=== PATIENT | male | born 1945 | race Caucasian/White ===

== ENCOUNTER → 2024-04-07 14:27 | Outpatient (REF) | payer MEDICARE, SELFPAY | LOC: PAVMRI 14:27 | PROVIDERS: ATTENDING PHYSICIAN Anesthesiology; FAMILY PHYSICIAN Family Medicine | DX: M54.12 Radiculopathy, cervical region (principal); M54.50 Low back pain, unspecified; G89.29 Other chronic pain; M51.24 Other intervertebral disc displacement, thoracic region; M54.6 Pain in thoracic spine | CPT/HCPCS: 72141; 72146; 72148 ==

== ENCOUNTER → 2024-06-14 07:20 | Outpatient (REF) | payer MEDICARE, SELFPAY | LOC: MRI 3T 07:20 | PROVIDERS: ATTENDING PHYSICIAN Orthopaedic Surgery Hand Surgery; FAMILY PHYSICIAN Family Medicine | DX: M25.512 Pain in left shoulder (principal) | CPT/HCPCS: 73221 ==

== ENCOUNTER → 2024-06-23 10:41 | Outpatient (REF) | payer MEDICARE, SELFPAY | LOC: RCS 10:41 | PROVIDERS: ATTENDING PHYSICIAN Orthopaedic Surgery Hand Surgery; FAMILY PHYSICIAN Family Medicine | DX: Z01.818 Encounter for other preprocedural examination (principal) | CPT/HCPCS: 93005 ==

== ENCOUNTER → 2025-01-04 13:37 | Outpatient (REF) | payer MEDICARE, SELFPAY ==
[2025-01-04 14:37] LABS: Hematocrit 46.9 % (39.0-52.0); Hemoglobin 16.3 g/dL (13.0-18.0); Mean Corp Hgb Conc. 34.8 g/dL (33.0-37.0); Mean Corpuscular Hgb 35.2 pg (27.0-31.0); Mean Corpuscular Volume 101.3 fL (80.0-94.0); Mean Platelet Volume 10.6 fL (7.4-10.4); Platelet Count 236 10^3/uL (130-400); Red Blood Cell Count 4.63 10^6/uL (4.70-6.10); Red Cell Dist. Width 13.2 % (11.5-14.5); White Blood Cell Count 8.2 10^3/uL (4.8-10.8)
[2025-01-04 14:52] LABS: ALT (SGPT) 40 U/L (0-50); AST (SGOT) 36 U/L (17-59); Albumin 4.3 g/dl (3.5-5.0); Alkaline Phosphatase 111 U/L (38-126); Blood Urea Nitrogen 11 mg/dl (9-20); Calcium 9.9 mg/dl (8.4-10.2); Carbon Dioxide 27 mmol/L (22-30); Chloride 104 mmol/L (98-107); Glucose 95 mg/dl (70-99); Potassium 3.8 mmol/L (3.5-5.1); Sodium 140 mmol/L (135-145); Total Bilirubin 1.1 mg/dl (0.2-1.3); Total Protein 6.6 g/dl (6.3-8.2); eGFR > 60.00
== END ==
LOC: SDSPAT 13:37
PROVIDERS: ATTENDING PHYSICIAN Orthopaedic Surgery Orthopaedic Surgery of the Spine; FAMILY PHYSICIAN Family Medicine
DX: Z01.818 Encounter for other preprocedural examination (principal)
CPT/HCPCS: 80053; 85027; 86850; 86900; 86901; 87070; 93005

== ENCOUNTER 2025-01-12 06:20 | Day surgery (SDC) | payer MEDICARE, SELFPAY ==
[2025-01-04 14:20] VITALS: BMI 32.2
[2025-01-06 09:08] VITALS: BMI 32.2
[2025-01-12] VITALS (27 sets, daily range): BP systolic 114–156; BP diastolic 68–116; BMI 32.2
[2025-01-12] MEDS: CELEBREX 200 MG PO (08:41)
[2025-01-12] MEDS: LYRICA 150 MG PO (08:41)
[2025-01-12] MEDS: NORMOSOL-R/PLASMALYTE-A 1000 IV ×2 (08:42→16:19)
[2025-01-12] MEDS: METHOCARBAMOL 1500 MG PO (08:42)
[2025-01-12] MEDS: TYLENOL 1000 MG PO ×3 (08:42→20:00)
--- NOTE | 2025-01-12 12:19 | W.PN.UPDATE ---
Update Note
Progress Note Update
Cervical arthritis w/ myelopathy s/p C3-C4, C4-C5 ACDF w/ Dr Baez 01/12/25
DVT prophylaxis - b/l SCDs/TEDS
HTN - + parameters - monitor BP
Abnormal EKG - monitor on tele
Daily alcohol � 1 drink/day reported
- Add thiamine, folic acid
- Consider Gabapentin, Serax HS
- Monitor for potential s/sx of withdrawal
OA s/p L TKA, R ELIAS
Multilevel DDD w/ stenosis
Gout
Prediabetes
[2025-01-12] MEDS: ULTRAM 50 MG PO ×3 (16:17→20:00)
[2025-01-12] MEDS: ANCEF 5 IV (16:17)
[2025-01-12] MEDS: TOPROL XL 25 MG PO (19:59)
[2025-01-12] MEDS: COLACE 100 MG PO (19:59)
[2025-01-12] MEDS: LYRICA 75 MG PO (19:59)
[2025-01-12] MEDS: TOPROL XL 50 MG PO (19:59)
[2025-01-12] MEDS: SENOKOT 17.2 MG PO (19:59)
--- NOTE | 2025-01-12 22:07 | PTCARENOTE ---
Patient had tramadol 100mg instead of 50mg. vitals are stable. AAox3. 133/97, HR- 89, RR- 16, oxygen sat- 95% RA. Just now ambulated to and from the bathroom . Kj Stewart made aware. No new orders at this time.
[2025-01-13] MEDS: ANCEF 5 IV (00:13)
[2025-01-13] MEDS: NORMOSOL-R/PLASMALYTE-A 1000 IV (00:13)
[2025-01-13] MEDS: ULTRAM 50 MG PO ×2 (02:55→07:28)
[2025-01-13] MEDS: TYLENOL 1000 MG PO ×2 (02:55→09:26)
[2025-01-13 03:27] VITALS: BP 133/66
[2025-01-13 07:12] VITALS: BP 133/71
[2025-01-13] MEDS: LYRICA 75 MG PO (07:27)
[2025-01-13] MEDS: SENOKOT 17.2 MG PO (07:28)
[2025-01-13] MEDS: FOLVITE 0.5 MG PO (07:28)
[2025-01-13] MEDS: COLACE 100 MG PO (07:28)
[2025-01-13] MEDS: TOPROL XL 50 MG PO (07:29)
[2025-01-13] MEDS: VITAMIN B1 100 MG PO (07:29)
[2025-01-13] MEDS: ZYLOPRIM 300 MG PO (07:29)
[2025-01-13] MEDS: TOPROL XL 25 MG PO (07:30)
[2025-01-13 07:41] LABS: Hematocrit 41.9 % (39.0-52.0); Hemoglobin 14.5 g/dL (13.0-18.0)
--- NOTE | 2025-01-13 08:00 | W.DS.TRANS ---
DC Summary - Physician Coder
-
Discharge Instructions:
Sleep Apnea Risk Intermediate
Discharge Diagnosis/Procedures Cervical arthritis w/ myelopathy s/p C3-C4, C4-
C5 ACDF w/ Dr Baez 01/12/25
Diet Regular
Activity As tolerated
Additional Activity No heavy lifting >10 lbs
Driving Restrictions Not until seen by your Dr
Bathing Restrictions OK to shower in 4 days
Instructions:
Stand-Alone Forms: Baez Cervical D/C Inst.
Changes to Home Medications: No
Discharge Medications:
DC Medications w/original date entered in [employer]
allopurinol 300 mg tablet 300 mg PO DAILY 01/06/25
hydrochlorothiazide 25 mg tablet 25 mg PO DAILY 01/06/25
metoprolol succinate 50 mg tablet,extended release 24 hr 75 mg PO BID 01/06/25
oxycodone 5 mg tablet 5 - 10 mg (1 - 2 x 5 mg) PO Q6H PRN moderate-severe pain #30 tabs 01/12/25
pregabalin 75 mg capsule 75 mg PO Q12H neuropathic pain #15 caps 01/12/25
Home Medication Changes
Pending Results: No
--- NOTE | 2025-01-13 08:01 | W.PN.SP ---
Today's Communication / Plan
-
s/p acdf
Doing well
Pt
D/c
Subjective / Objective
Subjective Data
Pt doing well
Denies weakness
Feels good
Objective Data
Vital Signs
Temp Pulse Resp BP Pulse Ox
97.7 F 68 17 133/71 94
01/13/25 07:12 01/13/25 07:30 01/13/25 07:12 01/13/25 07:30 01/13/25 07:12
Intake and Output
01/12/25 01/13/25 01/14/25
06:59 06:59 06:59
Intake Total 360 / 360 2160 / 2160
Balance 360 / 360 2160 / 2160
Intake:
Oral fluids 360 / 360 960 / 960
IV fluids (Total) 1200 / 1200
Other:
How many times incontinent 3
MODERATE amount urine
Lab Data
01/13/25 06:39
[2025-01-13 08:13] LABS: Blood Urea Nitrogen 17 mg/dl (9-20); Calcium 9.2 mg/dl (8.4-10.2); Carbon Dioxide 27 mmol/L (22-30); Chloride 105 mmol/L (98-107); Estimated Creatinine Clearance 79 ml/min; Glucose 128 mg/dl (70-99); Potassium 4.1 mmol/L (3.5-5.1); Sodium 141 mmol/L (135-145); eGFR > 60.00
--- NOTE | 2025-01-13 08:55 | W.PN.ORTHO ---
Today's Communication / Plan
-
Await PT and OT recs.
D/c later today if remaining clinically stable.
Assessment
.
Distal Motor Intact: Yes
Dressing:
Clean, dry and intact.
Assessment:
Cervical arthritis w/ myelopathy s/p C3-C4, C4-C5 ACDF w/ Baez 01/12/25
DVT prophylaxis - b/l SCDs/TEDS
Mild congestion POD 1 - nasal saline, Mucinex prn
- No concerning signs on physical exam today
HTN - + parameters - BPs overall stable
Abnormal EKG - maintaining NSR on tele
Daily alcohol � 1 drink/day reported
- Added thiamine, folic acid
- Consider Gabapentin, Serax HS
- No s/sx of withdrawal during admission
OA s/p L TKA, R ELIAS
Multilevel DDD w/ stenosis
Gout
Prediabetes
Plan
.
Surgery / Date: C3-C4, C4-C5 ACDF w/ Dr [facility] 01/12/25
DVT Prophylaxis: Other (b/l SCDs/TEDS)
Activity:
Out of bed.
PT/OT
Discharge Plan: Home
Subjective
.
.:
Patient resting comfortably in his chair.
Denies significant neck pain overnight.
Mild congestion this AM - nasal saline, Mucinex ordered. Lungs CTA.
AM labs stable.
Eager for potential d/c later today.
Vital Signs and Labs
.
Vital Signs and Labs:
Lab Results
01/13/25 06:39
01/13/25 06:39
Temp Pulse Resp BP Pulse Ox
97.7 F 68 17 133/71 94
01/13/25 07:12 01/13/25 07:30 01/13/25 07:12 01/13/25 07:30 01/13/25 07:12
Physical Exam
-
HEENT: No pallor, cyanosis, or jaundice. Throat clear.
NECK: + Cervical collar. Neck supple.
RESPIRATORY: Lungs clear to auscultation.
CVS: S1, S2 normal. RRR.�
ABDOMEN: Soft, non-tender. No distension. Obese.
EXTREMITIES: Strength equal, no calf pain with palpation/dorsiflexion. Calves soft.
PLANT TECHNICIAN/CONTROL ROOM OPERATOR: AOx3. No focal deficits. cap coverer grossly intact
--- NOTE | 2025-01-13 09:05 | W.DS.TRANS ---
DC Summary - Training Development Specialist
-
Discharge Instructions:
Sleep Apnea Risk Intermediate
Discharge Diagnosis/Procedures Cervical arthritis w/ myelopathy s/p C3-C4, C4-
C5 ACDF w/ Dr Baez 01/12/25
Diet Regular
Activity As tolerated,With Walker
Additional Activity No heavy lifting >10 lbs
Driving Restrictions Not until seen by your Dr
Bathing Restrictions OK to shower in 4 days
Instructions:
Stand-Alone Forms: Baez Cervical D/C Inst.
Changes to Home Medications: Yes
Discharge Medications:
DC Medications w/original date entered in [facility]
allopurinol 300 mg tablet 300 mg PO DAILY 01/06/25
metoprolol succinate 50 mg tablet,extended release 24 hr 75 mg PO BID 01/06/25
Saccharomyces boulardii 250 mg capsule (Florastor) 250 mg PO BID #10 caps 01/12/25
acetaminophen 500 mg tablet (Tylenol Extra Strength) 1,000 mg (2 x 500 mg) PO Q6H #60 tabs 01/12/25
cephalexin 500 mg capsule 500 mg PO Q6H #20 caps 01/12/25
docusate sodium 100 mg capsule 100 mg PO BID #30 caps 01/12/25
hydrochlorothiazide 25 mg tablet 25 mg PO DAILY #1 tab 01/12/25
ondansetron HCl 4 mg tablet 4 mg PO Q6H PRN nausea and vomiting #30 tabs 01/12/25
oxycodone 5 mg tablet 5 - 10 mg (1 - 2 x 5 mg) PO Q6H PRN moderate-severe pain #30 tabs 01/12/25
pregabalin 75 mg capsule 75 mg PO Q12H neuropathic pain #15 caps 01/12/25
sennosides 8.6 mg tablet (Paola-malachi) 17.2 mg (2 x 8.6 mg) PO BID #30 tabs 01/12/25
guaifenesin 600 mg tablet, extended release 12 hr 600 mg PO Q12 PRN chest congestion #30 tabs 01/13/25
sodium chloride 0.65 % nasal spray aerosol (Saline Nasal) 2 spray intranasal QIDPRN PRN nasal congestion #44 mL 01/13/25
Home Medication Changes
Saccharomyces boulardii 250 mg capsule (Florastor) 250 mg PO BID #10 caps 01/12/25
acetaminophen 500 mg tablet (Tylenol Extra Strength) 1,000 mg (2 x 500 mg) PO Q6H #60 tabs 01/12/25
cephalexin 500 mg capsule 500 mg PO Q6H #20 caps 01/12/25
docusate sodium 100 mg capsule 100 mg PO BID #30 caps 01/12/25
ondansetron HCl 4 mg tablet 4 mg PO Q6H PRN nausea and vomiting #30 tabs 01/12/25
oxycodone 5 mg tablet 5 - 10 mg (1 - 2 x 5 mg) PO Q6H PRN moderate-severe pain #30 tabs 01/12/25
pregabalin 75 mg capsule 75 mg PO Q12H neuropathic pain #15 caps 01/12/25
sennosides 8.6 mg tablet (Paola-amlachi) 17.2 mg (2 x 8.6 mg) PO BID #30 tabs 01/12/25
guaifenesin 600 mg tablet, extended release 12 hr 600 mg PO Q12 PRN chest congestion #30 tabs 01/13/25
sodium chloride 0.65 % nasal spray aerosol (Saline Nasal) 2 spray intranasal QIDPRN PRN nasal congestion #44 mL 01/13/25
Pending Results: Yes (Hep C antibody)
[2025-01-13] MEDS: OCEAN, SALINE MIST 2 SPRAYS NASAL (09:26)
[2025-01-13] MEDS: MUCINEX 600 MG PO (09:26)
[2025-01-13] MEDS: NORMOSOL-R/PLASMALYTE-A IV (09:27)
[2025-01-13 09:28] VITALS: BP 122/64; PULSE 72; O2SAT 94
[2025-01-13 11:16] VITALS: BP 150/72
[2025-01-13 11:21] VITALS: BP 140/74; PULSE 61; O2SAT 97
[2025-01-13 18:46] LABS: Hepatitis C Antibody Negative (Negative)
== END 2025-01-13 12:30 | disposition home or self-care (01) ==
LOC: SDS 06:20
PROVIDERS: Physician Assistant; ATTENDING PHYSICIAN Orthopaedic Surgery Orthopaedic Surgery of the Spine; FAMILY PHYSICIAN Family Medicine
PROC: 0RG20A0 Fusion of 2 or more Cervical Vertebral Joints with Interbody Fusion Device, Anterior Approach, Anterior Column, Open Approach (ICD-10-PCS; 2025-01-12)
DX: M47.12 Other spondylosis with myelopathy, cervical region (principal); M48.02 Spinal stenosis, cervical region
CPT/HCPCS: 22551; 22552; 22853 ×2; 72020; 80048; 85014; 85018; 86803; 86900; 86901; 97116; 97162; 97167; 97530; 97535; C1713

== ENCOUNTER 2025-01-16 06:10 | Inpatient (IN) | payer MEDICARE, SELFPAY ==
[2025-01-15 23:19] VITALS: BP 174/80
[2025-01-15 23:25] VITALS: BP 174/80
[2025-01-15 23:27] VITALS: BMI 30.5
[2025-01-15 23:47] LABS: COVID-19 Antigen Negative (Negative)
[2025-01-16] VITALS (13 sets, daily range): BP systolic 134–173; BP diastolic 73–96; BMI 29.7
[2025-01-16 00:05] LABS: % Basophils 0.5 % (0-2); % Eosinophils 1.2 % (0-6); % Immature Granulocytes 0.7 % (0-0.5); % Lymphocytes 8.9 % (20.5-51.1); % Monocytes 7.8 % (1.7-9.3); % Neutrophils 80.9 % (42.2-75.2); Absolute Basophils 0.1 10^3/uL (0-0.2); Absolute Eosinophils 0.1 10^3/uL (0-0.7); Absolute Immature Granulocytes 0.1 10^3/uL (0-0.05); Absolute Monocytes 0.8 10^3/uL (0.1-0.6); Absolute Neutrophils 8.7 10^3/uL (1.4-6.5); Hematocrit 46.2 % (39.0-52.0); Hemoglobin 16.3 g/dL (13.0-18.0); Mean Corp Hgb Conc. 35.3 g/dL (33.0-37.0); Mean Corpuscular Hgb 36.1 pg (27.0-31.0); Mean Corpuscular Volume 102.4 fL (80.0-94.0); Mean Platelet Volume 10.7 fL (7.4-10.4); Nucleated Red Blood Cells % 0 % (-); Platelet Count 208 10^3/uL (130-400); Red Blood Cell Count 4.51 10^6/uL (4.70-6.10); Red Cell Dist. Width 13.1 % (11.5-14.5); White Blood Cell Count 10.7 10^3/uL (4.8-10.8)
[2025-01-16 00:13] LABS: ALT (SGPT) 31 U/L (0-50); AST (SGOT) 31 U/L (17-59); Albumin 4.5 g/dl (3.5-5.0); Alkaline Phosphatase 95 U/L (38-126); Blood Urea Nitrogen 17 mg/dl (9-20); Carbon Dioxide 26 mmol/L (22-30); Chloride 103 mmol/L (98-107); Estimated Creatinine Clearance 94 ml/min; Glucose 121 mg/dl (70-99); Potassium 4.2 mmol/L (3.5-5.1); Sodium 141 mmol/L (135-145); Total Bilirubin 1.8 mg/dl (0.2-1.3); Total Protein 6.7 g/dl (6.3-8.2); eGFR > 60.00
--- NOTE | 2025-01-16 01:10 | ED.GENMED ---
History of Present Illness
General
Chief Complaint: Breathing Problem
Source: patient
Exam Limitations: none
Time Seen by Provider: 01/16/25 00:31
Nursing documentation reviewed up to this point in time: agreed with
History of Present Illness
History of Present Illness:
79-year-old male presents to the emergency department 3 days status post discharge from neck surgery by Dr. Baez. Patient has been unable to take his medications regularly. He states that he is short of breath and unable to swallow his pills. He
was able to eat some breakfast today. Patient feels a gurgling in his throat and his stomach. Denies fever chills, nausea or vomiting.
Past History
Past History
ED Past Medical History: HTN
ED Past Surgical History: Orthopedic
Social History
Tobacco: Non-smoker
Alcohol: None
Review of Systems
Review of Systems
Allergies reviewed?: Yes
Other source history: family
All Other Systems: ROS reviewed and negative except as documented in HPI and ROS
Constitutional: Reports no symptoms
EENT: Reports other (Difficulty swallowing)
Respiratory: Reports no symptoms
Cardiac: Reports no symptoms
ABD/GI: Reports no symptoms
: Reports no symptoms
Musculoskeletal: Reports no symptoms
Skin: Reports no symptoms
Neurological: Reports no symptoms
Endocrine: Reports no symptoms
Hematologic/Lymphatic: Reports no symptoms
Psychiatric: Reports no symptoms
Phy Exam
General Physical Exam
General Presentation: well appearing and no apparent distress
General Skin: warm and dry
General Habitus: normal
General Mental: alert
General Hydration: appears well hydrated
ENT Exam
ENT Exam: EOMI, pharynx normal, neck supple, normocephalic and other (Soft collar in place)
Eye Exam
Eye Exam: PERRL, cornea clear and conjunctiva normal
Cardiovascular Exam
Cardiovascular Exam: regular rate/rhythm, no edema, no murmur and normal peripheral pulses
Pulmonary Exam
Pulmonary Exam: lungs clear, no respiratory distress, no rales, no crackles, no rhonchi, no stridor, no wheezing and no cough
Gastrointestinal Exam
Gastrointestinal Exam: normal bowel sounds, non tender, soft, no organomegaly, no pulsatile mass and non distended
Neurological Exam
Neurological Exam: alert, oriented x3, no motor deficits and speech normal
Musculoskeletal Exam
Musculoskeletal Exam: full ROM and no edema
Skin Exam
Skin Exam: normal color, warm/dry, no rash and no petechia
Psychiatric Exam
Psychiatric Exam: normal mood/affect
Scores
Heart Failure Risk
Heart Failure Risk Score: Not Applicable
Course
Orders/Labs/Results
Orders:
Orders
01/15/25 23:24
COVID-19 Antigen Urgent
Source: Nasal Swab
INF RAPID [Influenza A+B Rapid Molecular] Urgent
DAPHNE Source: Nasal Swab
Specimen Description:
01/15/25 23:49
Complete Blood Count/With Diff Urgent
Comprehensive Metabolic Panel Urgent
01/16/25 00:00
CR Chest - 2 Views Urgent
Reason For Exam: cough and SOB
01/16/25 00:53
NT-proBNP Urgent
Troponin I Urgent
01/16/25 03:16
CT Neck W/o Iv Contrast Urgent
Comment:
Reason For Exam: diff swallowing
01/16/25 04:44
Dexamethasone Sod Phosphate [Decadron] 10 mg IV NOW STA
01/16/25 05:24
Admit/Transfer Patient As Directed
Co-Sign Provider:
Level of Care: Inpatient admission
Assign to:: Telemetry
Physician / Group: hospitalist
Diagnosis: dysphagia
Reason for Telemetry: Other
Other Reason for Telemetry: stridor
Date to Stop Telemetry: 01/18/25
Time to Stop Telemetry: 11:00
Reason for Hospitalization: dysphagia
Expected length of stay greater than two midnights?: Yes
ELOS- Estimated Length of Stay in days: 2
I certify the patient meets the requirements for IP care: Yes
PRN Pain Medication Management As Directed
May give lesser potent ordered pain med per pt: Yes
preference::
Protocol:: Medication orders for pain may be administered in a
manner that supports deferring to patient preference
when the pt is:
- Requesting an ordered lesser potent pain medication.
Least to most potent pain medications are defined
as: acetaminophen < NSAID < tramadol < opioids
(morphine, oxycodone, hydromorphone).
- Requesting a lesser dose of the same medication IF
ORDERED.
- Requesting a less intrusive route of administration
if both routes are prescribed by the provider (PO <
IV).
01/16/25 05:25
Code Status As Directed
Resuscitation Status: Full Code
01/16/25 Breakfast
NPO
Allow oral meds: No
Allow clear liquids: No
Flush (0.9% Sodium Chloride) [Flush (Nss)] See Dose Instructions IV PER PROTOCOL
01/16/25 08:00
CeFAZolin 2 GRAM [Ancef] 2 grams in 10 ml IV Q8H
01/16/25 08:17
Acetaminophen [Tylenol/Feverall] 650 mg RECTAL Q4HPRN PRN
Dextrose 5%/0.45%Sodchl 1000ML [D5/0.45%NaCl] 1,000 ml IV 60 mls/hr
HYDROmorphone [Dilaudid] 0.5 mg IV Q4HPRN PRN
HydrALAZINE [Apresoline] 10 mg IV Q6HPRN PRN
Ketorolac [Toradol] 10 mg IV Q6HPRN PRN
Metoprolol [Lopressor] 5 mg IV Q6
Ondansetron Injectable [Zofran] 4 mg IV Q6HPRN PRN
01/16/25 08:17
ENT CONSULT Routine
Consulting Provider: Katie Davidson
Was physician already notified: Yes
Reason for Consult: post op stridor
SURGICAL CONSULT Routine
Consulting Provider: Jt Baez
Was physician already notified: Yes
Activity As Directed
Activity Level: With Assistance
Vital Signs As Directed
Frequency: q4h
Speech Therapy Eval & Treat Routine
DX Deep Vein Thrombosis Video Routine
01/16/25 08:40
Sodium Chloride [[place], Saline Mist] See Dose Instructions NASAL QIDPRN PRN
01/16/25 12:00
Dexamethasone Sod Phosphate [Decadron] 4 mg IV Q6H
01/16/25 18:00
Enoxaparin Sodium [Lovenox] 40 mg SC QPM
01/17/25 06:00
Basic Metabolic Panel IN AM
Complete Blood Count/No Diff IN AM
01/18/25 11:00
DC Protocol for Telemetry ONCE
Abnormal Lab Results
01/15/25
23:49
RBC 4.51 L 10^6/uL
(4.70-6.10)
MCV 102.4 H fL
(80.0-94.0)
MCH 36.1 H pg
(27.0-31.0)
MPV 10.7 H fL
(7.4-10.4)
Abs Immat Gran (auto) 0.1 H 10^3/uL
(0-0.05)
Absolute Neuts (auto) 8.7 H 10^3/uL
(1.4-6.5)
Absolute Lymphs (auto) 1.0 L 10^3/uL
(1.2-3.4)
Absolute Monos (auto) 0.8 H 10^3/uL
(0.1-0.6)
Immature Gran % 0.7 H %
(0-0.5)
Neutrophils % 80.9 H %
(42.2-75.2)
Lymphocytes % 8.9 L %
(20.5-51.1)
Glucose 121 H mg/dl
(70-99)
Total Bilirubin 1.8 H mg/dl
(0.2-1.3)
01/15/25 23:49
01/15/25 23:49
Vital Signs
Initial and Last Documented VS:
Initial Vital Signs
Pulse Ox
96
01/15/25 23:17
Last Documented Vital Signs
Temp Pulse Resp BP Pulse Ox
97.8 F 70 18 155/81 96
01/16/25 19:34 01/16/25 19:34 01/16/25 19:34 01/16/25 19:34 01/16/25 19:34
*Critical Care Note
Total Time (30-74mins, 75-104mins- exclusive of procedures): Not Applicable
Update Note
Update Note:
Exams: CR Chest - 2 Views
CPT: 14836
PROCEDURE: CR Chest - 2 Views
CLINICAL INDICATION: cough and SOB
TECHNIQUE: 2 views of chest performed.
COMPARISON: No comparison available.
FINDINGS: The lungs appear clear.
The cardiac silhouette, vascular markings, and mediastinal shadow appear normal.
IMPRESSION:
No evidence of active cardiopulmonary disease.
Electronically signed by Get Mena MD, 01/16/2025 12:[address] neck without IV contrast
IMPRESSION:
Limited assessment without IV contrast.
Status post C3-5 ACDF with prevertebral edema versus blood products, and subcutaneous emphysema, cannot exclude infection. No prior imaging for comparison. Spine surgery consultation recommended.
Minimal paranasal sinus disease. Mastoid air cells clear. Lung apices clear.
Spoke with Dr. Baez, spine surgery who recommended Decadron and admission to hospitalist service. Hospitalist aware and agrees to accept patient on his service.
ED Attending Note
-
Portions of this chart may have been created with voice recognition software.� Occasional wrong word or��sound alike� substitutions may have occurred due to the inherent limitations of voice recognition software.
Discharge Plan
Departure
Patient Disposition: Admit
Date of Disposition: 01/16/25
Time of Disposition: 04:45
Admit to: Telemetry
Presentation/result/management discussed w/ accepting MD/DO: Hospitalist
Condition: Good
Discharge Problem:
Postsurgical swelling
Interventions
Interventions:
*Risk Screen - Suicide Last Done: 01/15/25 23:13
*General Assessment Last Done: 01/15/25 23:27
*Neglect/Abuse Screening Last Done: 01/15/25 23:13
*ED- Fall Risk Assessment Last Done: 01/15/25 23:27
*ED COVID-19 Vaccine History Last Done: 01/15/25 23:13
*Nursing Disposition Last Done: 01/16/25 08:07
ED- Cardiac Assessment Last Done: 01/15/25 23:27
ED- Pulmonary Assessment Last Done: 01/15/25 23:27
Discharge Date and Time
Discharge Date/Time: 01/16/25 08:08
[2025-01-16 01:29] LABS: NT-proBNP 490 pg/ml; Troponin I < 0.012 ng/ml
[2025-01-16] MEDS: DECADRON 10 MG IV (04:49)
--- NOTE | 2025-01-16 04:55 | HPS.HSE ---
Family Physician
-
Family Physician: Nikolas Valencia
Chief Complaint
-
Trouble breathing and swallowing
History of Present Illness
This is a 79-year-old with past medical history of hypertension, hyperlipidemia, gout and prediabetes who is postop day #3 status post ACDF on 317 who presents to the emergency department with difficulty swallowing and intolerance of p.o.
Patient reports that symptoms began immediately after surgery and upon discharge. His had difficulty swallowing liquids tablets and solid foods since then. Reports hearing a gurgling sound when he takes a deep breath. He initially thought that
this was coming from his stomach and was concerned about abdominal issues. He reports some difficulty breathing and states that he does feel short of breath. He states that he feels occasional difficulty to breathe. He denies any wheezing. He
denies any cough. He has no known history of CHF. He denies edema in the lower extremities. He denies PND. Patient denies any pain in his neck. He denies any pain with attempted swallowing. He reports that if he tries to take a liquid or
tablet upon reaching the back of his throat it just comes out spontaneously. Denies vomiting. He denies regurgitation. He has been unable to take his prescribed medications since discharge.
In the emergency department he was afebrile, blood pressure was 170/90 with a pulse rate of 77 and oxygen saturation of 96% on room air. CBC was unremarkable. Electrolyte BUN/creatinine were all normal. Glucose was normal. BNP was 490.
Imaging studies with a CT scan shows status post C3-5 ACDF with prevertebral edema versus blood products and subcutaneous emphysema. Lung apices were clear. Chest x-ray shows no evidence of acute infiltration, ptx, edema.
Medical History
Past Medical History
Past Medical History: Reports HTN and Other (Gout, arthritis,)
Past Surgical History: Reports Orthopedic (Left total knee replacement, right total hip arthroplasty ) and Tonsilectomy
Additional Past Surgical History:
L5-S1 ILESI NO SED 03/13/23
L5-SI ILESI NO SED 04/03/23
RT L1-2 ILESI NO SED 05/01/23
left shoulder surgery form a fall 2023
C3-5 ACDF 01/13/2025
Social History
Tobacco: Non-smoker
Alcohol: None
Drug: None
Personal:
Living: With Family
Employment: Retired
Family History
Family History: Not pertinent
Allergies / Home Medications
Allergies reflects when Allergies were last updated in [employer].
Home Medications with original date entered in [employer]
Allergy/Medication List:
Allergies
Allergy/AdvReac Type Severity Reaction Status Date / Time
No Known Allergies Allergy Verified 01/12/25 08:24
Home Medications
allopurinol 300 mg tablet 300 mg PO DAILY 01/06/25
metoprolol succinate 50 mg tablet,extended release 24 hr 75 mg PO BID 01/06/25
Saccharomyces boulardii 250 mg capsule (Florastor) 250 mg PO BID #10 caps 01/12/25
acetaminophen 500 mg tablet (Tylenol Extra Strength) 1,000 mg (2 x 500 mg) PO Q6H #60 tabs 01/12/25
cephalexin 500 mg capsule 500 mg PO Q6H #20 caps 01/12/25
docusate sodium 100 mg capsule 100 mg PO BID #30 caps 01/12/25
hydrochlorothiazide 25 mg tablet 25 mg PO DAILY #1 tab 01/12/25
ondansetron HCl 4 mg tablet 4 mg PO Q6H PRN nausea and vomiting #30 tabs 01/12/25
oxycodone 5 mg tablet 5 - 10 mg (1 - 2 x 5 mg) PO Q6H PRN moderate-severe pain #30 tabs 01/12/25
pregabalin 75 mg capsule 75 mg PO Q12H neuropathic pain #15 caps 01/12/25
sennosides 8.6 mg tablet (Paola-malachi) 17.2 mg (2 x 8.6 mg) PO BID #30 tabs 01/12/25
guaifenesin 600 mg tablet, extended release 12 hr 600 mg PO Q12 PRN chest congestion #30 tabs 01/13/25
sodium chloride 0.65 % nasal spray aerosol (Saline Nasal) 2 spray intranasal QIDPRN PRN nasal congestion #44 mL 01/13/25
Review of Systems
-
History Source: Patient
Constitutional: Reports No Symptoms
Respiratory: Reports Trouble Breathing
Cardiac: Reports No Symptoms
Abdomen/GI: Reports No Symptoms
: Reports No Symptoms
Musculoskeletal: Reports No Symptoms
Skin: Reports No Symptoms
Neurological: Reports No Symptoms
Endocrine: Reports No Symptoms
Hematologic/Lymphatic: Reports No Symptoms
Psych: Reports No Symptoms
Physical Exam
Vital Signs
Vital Signs
Temp Pulse Resp BP Pulse Ox
98.2 F 74 13 153/96 96
01/15/25 23:25 01/16/25 04:45 01/16/25 04:45 01/16/25 04:21 01/16/25 04:45
Physical Exam
General: Well Developed, Well Nourished, Comfortable and Conversant
HEENT: NormoCephalic, Anicteric, Moist mucous membranes, Atraumatic, Good Dentition, PERRLA, No Ptosis, Nose Appears Normal, Pharyngeal Erythema, Neck Nontender and Other (hoarseness); No Oxygen
Respiratory: Clear, Non Labored Respirations, Clear to Percussion and Other (end expiratory stridor); No Accessory Resp Muscle Use or Decreased Breath Sounds
Cardiac: S1/S2 and Regular Rhythm
Breast: Deferred by me
GI: Soft, Normal Bowel Sounds, Distended and No Hepatosplenomegaly
Rectal: Deferred by Provider
Genito-urinary: Deferred by me
Musculoskeletal: No Clubbing, No Cyanosis and No Edema
Skin: Warm
Neuro: AO x 3 and Nonfocal/grossly intact
Hematologic/Lymphatic: No Lymphadenopathy
Psych: Calm
Laboratory Results
-
01/15/25 23:49
01/15/25 23:49
Laboratory Results
Total Bilirubin 1.8 mg/dl (0.2-1.3) H 01/15/25 23:49
AST 31 U/L (17-59) 01/15/25 23:49
ALT 31 U/L (0-50) 01/15/25 23:49
Alkaline Phosphatase 95 U/L (38-126) 01/15/25 23:49
Troponin I < 0.012 ng/ml 01/16/25 00:53
Data Reviewed
-
CT Scan: Report Reviewed by me
Lab Data: Labs Reviewed by me
Old Records: Reviewed
Impression/Plan
-
IMPRESSION:
79 y.o who is POD 3 s/p C3-5 ACDF coming in with post-op difficulty swallowing without odynophagia, neck pain, fevers or chills. Also has stridor and hoarseness concerning for vocal chord dysfunction. Inspiration and expiration chest movement and
airflow appears normal. Oxygenation is normal. Xray is normal. CT neck c/w with prevertebral edema versus blood products, and subcutaneous emphysema, cannot exclude infection. D/W Dr. Baez of spine who felt that these are expected post-surgical
findings. However these findings do not fully explain vocal cord dysfunction and the minor stridor. Failed attempted swalling test in ED.
PLAN:
1. Prevertebral edema with difficulty swallowing
- admit to telemetry for now
- NPO
- d5 1/2 NS for now
- Decadron 10mg iv stat then16 daily in 4 divided doses for now
- spine consulted and to see in am
- swallow evaluation
- while npo, will give post op abx iv, metoprlol as iv and hold hctz
- pain control
2. Hoarseness - Possibly from post op irritation of larynx/vocal cords. Mild stridor but patient feels short of breath
- steroids as above
- ENT consultation
3. HTN
- metoprolol 5 q 6 w/ hold parameters
- prn hydralazine
DVT PPX - lovenox sq
Code status - Full code
--- NOTE | 2025-01-16 06:49 | EDRN ---
this RN called the receiving unit and notified them that paper report was going to be tubed up
--- NOTE | 2025-01-16 08:25 | W.PN.ENT ---
Today's Communication
-
Increase IV steroids, clears, follow clinically
Impression / Plan
-
The patient is POD 3 s/p ACDF with associated neck and pharyngeal edema. He is symptomatic of the pharyngeal edema and CT shows edema in this area as well. I recommend increasing the steroid dosing to 8-10mg IV decadadron Q8hrs x 3 doses then can do
a taper thereafter and follow clinically. He can remain on clear liquids today and ADAT. Full c/s dictated. Pls call with Questions/Concerns.
Subjective Data
-
The patient was seen and examined 01/16/25 AM. He is POD 3 s/p ACDF and c/o trouble swallowing and breathing. His breathing has improved, but swallowing remains a problem. He can swallow liquids but not solids. He is prediabetic.
Objective Data
-
Vital Signs
Temp Pulse Resp BP Pulse Ox
97.3 F 77 20 160/82 94
01/17/25 03:38 01/17/25 05:33 01/17/25 03:38 01/17/25 05:33 01/17/25 03:38
Calcium 10.0 mg/dl (8.4-10.2) 01/15/25 23:49
Total Bilirubin 1.8 mg/dl (0.2-1.3) H 01/15/25 23:49
AST 31 U/L (17-59) 01/15/25 23:49
ALT 31 U/L (0-50) 01/15/25 23:49
Alkaline Phosphatase 95 U/L (38-126) 01/15/25 23:49
Physical Exam
-
GEN: NAD, Alert and oriented
HEENT: OC/OP clear, neck with some edema around the incision but no palpable fluid collection
FFNPL: Edema of the posterior pharyngeal wall partially obscuring view of glottis. Cords can be seen on phonation with good closure. Cannot visualize post cricoid region. +pooled secretions in the piriforms.
--- NOTE | 2025-01-16 08:46 | W.PN.UPDATE ---
Update Note
Progress Note Update
79-year-old with past medical history of hypertension, hyperlipidemia, gout and prediabetes status post ACDF on 01/12 who was admitted early this morning for dysphagia secondary to prevertebral edema postprocedure. Appreciate spine surgery input,
postop edema is normal, trachea is not deviated.
Currently n.p.o. awaiting speech evaluation.
Continue IV steroids, ENT consult pending.
Discontinue Lovenox, will order SCDs for DVT prophylaxis.
[2025-01-16] MEDS: LOPRESSOR 5 MG IV ×3 (09:26→17:31)
[2025-01-16] MEDS: D5/0.45%NACL 1000 IV (09:26)
[2025-01-16] MEDS: ANCEF 10 IV ×2 (09:27→16:10)
--- NOTE | 2025-01-16 10:06 | CON.MD ---
Consultation - Medical
-
Pt is a 79 year old pt with myelopathy who underwent 2 level ACDF.
Had trouble swallowing and felt short of breath.
He has not been able to take any meds.
He is able to move air normally. Can take deep breaths without any issues.
He felt SOB 2 times.
Arms and balacne better
CT scan shows post op edema which is normal. Trachea not deviated or substantially abnormal. Does not appear to have hematoma
No signs of infection and would be too early
Steroids for swelling, hold chemical prophylaxis. Will use mechanical until Tues
Swallowing study for diet
Can be discharged when diet known.
Thanks
--- NOTE | 2025-01-16 10:17 | CON.MD ---
Consultation - Medical
-
If any issues with moving air, please notify me immediately.
[2025-01-16] MEDS: DECADRON 4 MG IV ×2 (12:59→17:31)
--- NOTE | 2025-01-16 15:33 | CHAP ---
Mr. Du said he's doing okay, expecting a visit from his . He welcomed prayer. Emotional and spiritual support provided.
--- NOTE | 2025-01-16 18:35 | PTOTSP ---
ST Acute Care Evaluation
Pt currently presents with clinical signs of fairly significant oropharyngeal dysphagia as evidenced by inability to manage his own secretions at baseline, overt s/s of penetration/aspiration with thin liquids and thick consistencies, and pt-reports
of possible redirection of bolus flow to the nasal cavity, all in the setting of prevertebral edema s/p C3-5 ACDF. Pt also reports baseline symptoms of GERD, but has no formal dx.
Recommendations:
- STRICT NPO; if any PO meds are needed - only ESSENTIAL crushed in puree.
- Highly consider placement of short-term entec if swelling will take a long time to resolve.
- No ARHP - pt is not appropriate at this time.
- Aspiration and reflux precautions: HOB upright at least 30 degrees at all times (even when sleeping); oral care at least q4; encourage pt to cough or clear throat when presenting with a wet vocal quality.
- TELECOM ANALYST to f/u re: re-assessing pt's candidacy for PO diet initiation and to determine if/when it would be appropriate for an instrumental swallow study (premature at this time).
[2025-01-17] MEDS: DECADRON 4 MG IV ×5 (00:05→23:05)
[2025-01-17] MEDS: LOPRESSOR 5 MG IV ×5 (00:05→23:04)
[2025-01-17] MEDS: ANCEF 10 IV ×4 (00:06→23:05)
[2025-01-17 03:38] VITALS: BP 159/86
[2025-01-17] MEDS: D5/0.45%NACL 1000 IV ×2 (05:38→17:26)
--- NOTE | 2025-01-17 06:00 | W.PN.HOSP.TC ---
Today's Communication/Plan
-
see a/p
Assessment / Plan
Assessment / Plan
Physical Exam
General: Well Developed, Well Nourished, Comfortable and Conversant
HEENT: NormoCephalic, Anicteric, Moist mucous membranes, PERRLA, neck wound dressing clean dry intact
Respiratory: Clear to auscultation b/l
Cardiac: S1/S2 and Regular Rhythm
GI: Soft, Normal Bowel Sounds, Distended and No Hepatosplenomegaly
Musculoskeletal: No Clubbing, No Cyanosis and No Edema
Skin: Warm
Neuro: AOx3 conversant coherent
Psych: Calm
79-year-old with past medical history of hypertension, hyperlipidemia, gout and prediabetes status post ACDF on 01/12 admitted for dysphagia secondary to prevertebral edema postprocedure. Appreciate spine surgery input, postop edema is normal,
trachea is not deviated.
#Prevertebral edema with difficulty swallowing
#Hoarseness - Possibly from post op irritation of larynx/vocal cords. Mild stridor but patient feels short of breath
- Tele
- IVF hydration
- Decadron 4 mg IV Q6H to be tapered to Q8H
- spine consult and ENT evaluations appreciated
- swallow eval with VSE appreciated mince moist diet with thin liquids started
- cont post op abx iv, metoprlol as iv and hold hctz
- pain control
#HTN
- metoprolol 5 q 6 w/ hold parameters
- prn hydralazine
DVT PPX - lovenox sq
Code status - Full code
Discussed with patient and patient's Rebecca.
I spent a total of 50 minutes with the patient or on the floor. More than 50% of this time involved counseling and coordination of care.
Anticipated Discharge: 24 - 48 hours
Subjective/Interval History
-
Date of Service: January 17, 2025
Seen and examined at bedside in no acute distress sitting up comfortably in chair. Reports some anterior neck discomfort but otherwise reports feeling well. Eager to resume diet. Rebecca present during evaluation.
Objective Data
-
Labs:
Laboratory Results
01/17/25
06:00
WBC Pending
Hgb Pending
Hct Pending
Plt Count Pending
Sodium Pending
Potassium Pending
Chloride Pending
Carbon Dioxide Pending
BUN Pending
Creatinine Pending
Glucose Pending
Calcium Pending
Vital Signs:
Vital Signs
Temp Pulse Resp BP Pulse Ox
97.3 F 77 20 160/82 94
01/17/25 03:38 01/17/25 05:33 01/17/25 03:38 01/17/25 05:33 01/17/25 03:38
[2025-01-17 07:30] VITALS: BP 145/76
[2025-01-17 08:05] LABS: Mean Corp Hgb Conc. 35.6 g/dL (33.0-37.0); Mean Corpuscular Hgb 35.6 pg (27.0-31.0); Mean Corpuscular Volume 100.2 fL (80.0-94.0); Mean Platelet Volume 10.9 fL (7.4-10.4); Platelet Count 246 10^3/uL (130-400); Red Blood Cell Count 4.49 10^6/uL (4.70-6.10); Red Cell Dist. Width 12.6 % (11.5-14.5); White Blood Cell Count 8.1 10^3/uL (4.8-10.8)
[2025-01-17 08:46] LABS: Blood Urea Nitrogen 21 mg/dl (9-20); Calcium 9.8 mg/dl (8.4-10.2); Carbon Dioxide 27 mmol/L (22-30); Chloride 102 mmol/L (98-107); Estimated Creatinine Clearance 83 ml/min; Glucose 135 mg/dl (70-99); Potassium 4.3 mmol/L (3.5-5.1); Sodium 141 mmol/L (135-145); eGFR > 60.00
[2025-01-17 11:20] VITALS: BP 145/74
--- NOTE | 2025-01-17 15:16 | PTOTSP ---
Videofluoroscopic swallow study
Functional oral stage of swallowing. Mild-moderate pharyngeal dysphagia suspected to be acute and related to post-op changes such as prevertebral swelling s/p ACDF 4 days ago.
Education completed with patient re: results of study. Patient opted for diet/liquids liquids below after education of risks/benefits.
Recommend:
1. IDDSI Level 5 Minced and Moist Solids, Thin Liquids
2. Medications: crushed in puree, thin down with liquid as needed
3. Strategies: upright to 90 degrees, small sips/bites, slow rate, multiple swallows, intermittent cough/reswallow, remain upright after eating/drinking for 30 minutes
4. Oral care 3x daily
5. Dysphagia tx at the acute care level as able/appropriate for instruction in compensations and to determine if/when repeat video swallow study appropriate
[2025-01-17 15:35] VITALS: BP 145/72
[2025-01-17 19:43] VITALS: BP 143/83
[2025-01-17 23:03] VITALS: BP 146/93
[2025-01-18 03:30] VITALS: BP 155/74
[2025-01-18] MEDS: LOPRESSOR 5 MG IV (05:33)
[2025-01-18 07:07] VITALS: BP 150/80
--- NOTE | 2025-01-18 07:18 | W.PN.HOSP.TC ---
Today's Communication/Plan
-
diet advanced as per speech
steroid taper
pain control
possible discharge tomorrow
Assessment / Plan
Assessment / Plan
Physical Exam
General: Well Developed, Well Nourished, Comfortable and Conversant
HEENT: NormoCephalic, Anicteric, Moist mucous membranes, PERRLA, neck wound dressing clean dry intact
Respiratory: Clear to auscultation b/l
Cardiac: S1/S2 and Regular Rhythm
GI: Soft, Normal Bowel Sounds, Distended and No Hepatosplenomegaly
Musculoskeletal: No Clubbing, No Cyanosis and No Edema
Skin: Warm
Neuro: AOx3 conversant coherent
Psych: Calm
79-year-old with past medical history of hypertension, hyperlipidemia, gout and prediabetes status post ACDF on 01/12 admitted for dysphagia secondary to prevertebral edema postprocedure. Appreciate spine surgery input, postop edema is normal,
trachea is not deviated.
#Prevertebral edema with difficulty swallowing
#Hoarseness - Possibly from post op irritation of larynx/vocal cords. Mild stridor but patient feels short of breath
- Tele
- IVF hydration
- Decadron 4 mg IV Q6H tapered to Q12H, eventual switch to PO prednisone 40 mg daily short taper planned (10 mg reduction per day)
- spine consult and ENT evaluations appreciated
- swallow eval with VSE appreciated mince moist diet with thin liquids started later advanced to soft bite sized
- completed post op abx
- pain control
#HTN
- home Metoprolol HCTZ resumed
- prn hydralazine
DVT PPX - lovenox sq
Code status - Full code
I spent a total of 40 minutes with the patient or on the floor. More than 50% of this time involved counseling and coordination of care.
Anticipated Discharge: Within 24 hours
Subjective/Interval History
-
Date of Service: January 18, 2025
No acute distress. Overall patient reports feeling well. Tolerating diet.
Objective Data
-
Labs:
Laboratory Results
01/18/25
06:00
WBC Pending
Hgb Pending
Hct Pending
Plt Count Pending
Sodium Pending
Potassium Pending
Chloride Pending
Carbon Dioxide Pending
BUN Pending
Creatinine Pending
Glucose Pending
Calcium Pending
Vital Signs:
Vital Signs
Temp Pulse Resp BP Pulse Ox
98.5 F 80 21 180/93 95
01/18/25 03:30 01/18/25 05:33 01/18/25 03:30 01/18/25 05:33 01/18/25 03:30
I&O
01/17/25 01/18/25 01/19/25
06:59 06:59 06:59
Intake Total 0 / 0 450 / 450
Balance 0 / 0 450 / 450
[2025-01-18 08:22] LABS: Hematocrit 47.3 % (39.0-52.0); Mean Corp Hgb Conc. 35.9 g/dL (33.0-37.0); Mean Corpuscular Hgb 35.9 pg (27.0-31.0); Mean Corpuscular Volume 99.8 fL (80.0-94.0); Mean Platelet Volume 10.5 fL (7.4-10.4); Platelet Count 248 10^3/uL (130-400); Red Blood Cell Count 4.74 10^6/uL (4.70-6.10); Red Cell Dist. Width 12.7 % (11.5-14.5); White Blood Cell Count 9.8 10^3/uL (4.8-10.8)
[2025-01-18 09:00] LABS: Blood Urea Nitrogen 24 mg/dl (9-20); Calcium 9.9 mg/dl (8.4-10.2); Carbon Dioxide 26 mmol/L (22-30); Chloride 106 mmol/L (98-107); Estimated Creatinine Clearance 83 ml/min; Glucose 128 mg/dl (70-99); Magnesium 2.2 mg/dl (1.6-2.3); Phosphorus 3.6 mg/dl (2.5-4.5); Potassium 4.2 mmol/L (3.5-5.1); Sodium 141 mmol/L (135-145); eGFR > 60.00
[2025-01-18] MEDS: ANCEF 10 IV (09:01)
[2025-01-18] MEDS: ORETIC 25 MG PO (09:01)
[2025-01-18] MEDS: ZYLOPRIM 300 MG PO (09:01)
[2025-01-18] MEDS: DECADRON 4 MG IV ×2 (09:01→19:54)
[2025-01-18] MEDS: TOPROL XL 25 MG PO ×2 (09:01→19:53)
[2025-01-18] MEDS: FLORASTOR 250 MG PO ×2 (09:02→19:53)
[2025-01-18] MEDS: TOPROL XL 50 MG PO ×2 (09:02→19:53)
[2025-01-18 11:56] VITALS: BP 148/81
--- NOTE | 2025-01-18 14:49 | PTOTSP ---
Dysphagia Therapy
Impression: Video swallow study 01/17 with functional oral stage of swallowing and mild-moderate pharyngeal dysphagia due to prevertebral swelling s/p ACDF.
Patient requested diet advancement due to dislike of minced/moist foods. Today he continues to present with signs concerning for possible pharyngeal dysphagia (i.e., cough with dry solids x1). Trial diet advancement below. Education completed of
signs/symptoms to monitor for of increased dysphagia/aspiration. Return to minced/moist diet if noted.
Recommend:
1. IDDSI Level 6 Soft and Bite Sized, Thin Liquids
2. Medications: crushed in puree, thin down with liquid as needed
3. Strategies: upright to 90 degrees, CHEW well, small sips/bites, slow rate, multiple swallows, intermittent cough/reswallow, remain upright after eating/drinking for 30 minutes
4. Oral care 3x daily
5. Dysphagia tx at the acute care level as able/appropriate for instruction in compensations and to determine if/when repeat video swallow study appropriate
[2025-01-18 15:02] VITALS: BP 164/91
--- NOTE | 2025-01-18 15:24 | CM ---
Late entry note from 01/17/2025
Met with patient and his at bedside to obtain information for assessment. Patient's was at bedside and stated that they live in a two story home with elevator access and no steps. He has been independent with all of his ADLs, personal
care, dressing and bathing. 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 He has been driving and able to transport himself to all of his appointments and do all of his own shopping. He has a walker if needed. There are grab
bars in the shower. He has never had VN or been to a SNF.
Patient has a prescription plan and uses [facility] in [facility] for all of his medications.
His PCP is, Nikolas Valencia.
Patient expressed that he feels he would be able to return home when stable and does not feel that he will have any needs. Patient's will drive him at d/c.
Plan: Case management will continue to follow and assist with discharge planning. Home.
[2025-01-18 23:59] VITALS: BP 163/78
[2025-01-19 00:12] VITALS: BP 152/64
--- NOTE | 2025-01-19 06:20 | W.PN.HOSP.TC ---
Today's Communication/Plan
-
discharge
Assessment / Plan
Assessment / Plan
Physical Exam
General: appears comfortable at this time, no acute distress
HEENT: NormoCephalic, Anicteric, Moist mucous membranes, PERRLA, neck wound dressing clean dry intact
Respiratory: Clear to auscultation b/l
Cardiac: S1/S2 and Regular Rhythm
GI: Soft, Normal Bowel Sounds, Distended and No Hepatosplenomegaly
Musculoskeletal: No Clubbing, No Cyanosis and No Edema
Skin: Warm
Neuro: AOx3 conversant coherent
Psych: Calm
79M with past medical history of hypertension, hyperlipidemia, gout and prediabetes status post ACDF on 01/12 admitted for dysphagia secondary to prevertebral edema postprocedure. Appreciate spine surgery input, postop edema is normal, trachea is
not deviated.
#Prevertebral edema with difficulty swallowing
#Hoarseness - Possibly from post op irritation of larynx/vocal cords. Mild stridor but patient feels short of breath (since improved/resolved)
- Tele
- IVF hydration completed
- Decadron 4 mg IV Q6H tapered to Q12H, switched to PO prednisone 40 mg daily short taper planned (10 mg reduction per day)
- spine consult and ENT evaluations appreciated
- swallow eval with VSE appreciated mince moist diet with thin liquids started later advanced to soft bite sized, tolerating well
- completed post op abx
- pain relatively well controlled at this time
#HTN
- home Metoprolol HCTZ resumed
- prn hydralazine (has not required)
- elevated pressures likely exacerbated by pain/discomfort and steroids
DVT PPX - lovenox sq
Code status - Full code
Medically stable for discharge home with outpatient follow up recommendations.
Total Time Preparing Discharge ___40____ minutes including examination of the patient, summary of the hospital stay, instructions for continuing care to all relevant caregivers; and preparation of discharge records, prescriptions, and referral
forms if necessary.
Anticipated Discharge: Today
Subjective/Interval History
-
Date of Service: January 19, 2025
Reports feeling well. Tolerating diet. Denies new acute issues at this time. Eager to go home.
Objective Data
-
Labs:
Laboratory Results
01/19/25
06:00
WBC Pending
Hgb Pending
Hct Pending
Plt Count Pending
Sodium Pending
Potassium Pending
Chloride Pending
Carbon Dioxide Pending
BUN Pending
Creatinine Pending
Glucose Pending
Calcium Pending
Vital Signs:
Vital Signs
Temp Pulse Resp BP Pulse Ox
97.4 F 56 20 163/78 95
01/18/25 23:59 01/18/25 23:59 01/18/25 23:59 01/18/25 23:59 01/18/25 23:59
I&O
01/17/25 01/18/25 01/19/25
06:59 06:59 06:59
Intake Total 0 / 0 450 / 450 480 / 480
Balance 0 / 0 450 / 450 480 / 480
[2025-01-19 07:40] VITALS: BP 185/82
[2025-01-19] MEDS: TOPROL XL 25 MG PO (09:08)
[2025-01-19] MEDS: TOPROL XL 50 MG PO (09:08)
[2025-01-19] MEDS: ORETIC 25 MG PO (09:09)
[2025-01-19] MEDS: DELTASONE 40 MG PO (09:09)
[2025-01-19] MEDS: ZYLOPRIM 300 MG PO (09:09)
[2025-01-19 09:53] LABS: Hematocrit 47.3 % (39.0-52.0); Hemoglobin 16.3 g/dL (13.0-18.0); Mean Corp Hgb Conc. 34.5 g/dL (33.0-37.0); Mean Corpuscular Hgb 35.4 pg (27.0-31.0); Mean Corpuscular Volume 102.6 fL (80.0-94.0); Mean Platelet Volume 10.8 fL (7.4-10.4); Platelet Count 259 10^3/uL (130-400); Red Blood Cell Count 4.61 10^6/uL (4.70-6.10); Red Cell Dist. Width 12.7 % (11.5-14.5); White Blood Cell Count 9.9 10^3/uL (4.8-10.8)
[2025-01-19 12:08] LABS: Blood Urea Nitrogen 32 mg/dl (9-20); Carbon Dioxide 27 mmol/L (22-30); Chloride 104 mmol/L (98-107); Estimated Creatinine Clearance 58 ml/min; Glucose 105 mg/dl (70-99); Magnesium 2.2 mg/dl (1.6-2.3); Phosphorus 3.8 mg/dl (2.5-4.5); Potassium 4.3 mmol/L (3.5-5.1); Sodium 141 mmol/L (135-145); eGFR > 60.00
--- NOTE | 2025-01-19 12:58 | W.DCSUMMARY ---
Discharge Summary
Discharge Data
Date of Admission: 01/16/25
Date of Discharge: 01/19/25
-
Pending Results: No
Discharge Plan
-
Patient Disposition: Home (Routine Discharge)
Discharge Diagnosis/Procedures: recent C3-5 ACDF (Anterior Cervical Discectomy and Fusion) for myelopathy
Post op Prevertebral edema with difficulty swallowing since improved
Hypertension
Condition: Fair
Diet: 2 Gram Sodium
Additional Diets: soft bite sized diet, ok to advance as tolerated
Activity: As tolerated
Driving Restrictions: Avoiddriving whentaking opiate pain meds/oxycodone
Bathing Restrictions: OK to Shower
Activity Restrictions/Additional Instructions:
Follow up with primary care provider in 1 week of discharge and keep your appointment with Orthopedic Spine Surgeon.
Follow up with outpatient speech therapy for further evaluation of swallow in 1 week of discharge. Script has been provided to facilitate
A short prednisone taper has been prescribed for post op prevertebral edema causing difficulty swallowing:
40 mg daily x1 day, then 30 mg daily x1 day, then 20 mg daily x1 day, then 10 mg daily x1 day, then stop
Avoid driving when taking opiate pain medications such as Oxycodone.
Home scheduled Tylenol has been changed to as needed for pain.
Post-op antibiotics completed. No need to continue probiotic at this time.
Please take medications as prescribed/recommended and follow up with primary care provider and/or other healthcare provider involved in your care for refills and/or further adjustment to your medication regimen as necessary.
Referrals:
Nikolas Valencia MD [Family Provider] - in one week
Jt Baez MD [Active] -
()
Prescriptions:
New
prednisone 10 mg Tablet
See Rx Instructions .ROUTE .COMPLEX Qty: 10 0RF
Rx Instructions:
Take By Mouth:
40 mg daily x1 day, 30 mg daily x1 day,
20 mg daily x1 day, 10 mg daily x1 day, then stop
Continued
metoprolol succinate 50 mg Tablet Extended Release 24 Hr
75 mg PO BID
allopurinol 300 mg Tablet
300 mg PO DAILY
docusate sodium 100 mg Capsule
100 mg PO BID Qty: 30 0RF
sennosides [Paola-malachi] 8.6 mg Tablet
17.2 mg PO BID Qty: 30 0RF
ondansetron HCl 4 mg tablet
4 mg PO Q6H PRN (Reason: nausea and vomiting) Qty: 30 0RF
oxycodone 5 mg tablet
5 - 10 mg PO Q6H PRN (Reason: moderate-severe pain) Qty: 30 0RF
Rx Instructions:
1 tab for moderate pain, 2 if severe.
Dx ACDF
hydrochlorothiazide 25 mg Tablet
25 mg PO DAILY Qty: 1 0RF
Rx Instructions:
HOLD IF systolic blood pressure <130 while on post-surgical narcotics.
guaifenesin 600 mg Tablet Extended Release 12hr
600 mg PO Q12 PRN (Reason: chest congestion ) Qty: 30 0RF
Saline Nasal 0.65 % Aerosol,[place]
2 spray intranasal QIDPRN PRN (Reason: nasal congestion) Qty: 44 0RF
Rx Instructions:
Over the counter. If brand not available, choose a different saline product.
Changed
acetaminophen [Tylenol Extra Strength] 500 mg Tablet
1,000 mg PO Q6H PRN (Reason: Pain) Qty: 60 0RF
Rx Instructions:
DO NOT exceed >4000 mg daily.
Discontinued
pregabalin 75 mg Capsule
75 mg PO Q12H Qty: 15 0RF
Rx Instructions:
Take twice daily x5 days, then once daily x5 days, then STOP.
cephalexin 500 mg capsule
500 mg PO Q6H Qty: 20 0RF
Saccharomyces boulardii [Florastor] 250 mg capsule
250 mg PO BID Qty: 10 0RF
Rx Instructions:
Over the counter. Take while on antibiotic.
If unavailable, choose a different probiotic.
Discharge Orders:
Discharge Patient (As Directed); Ordered 01/19/25
Ordered By: Mary Whiteside
Discharge Date and Time
Print Language: U[place]
[2025-01-19 13:00] VITALS: BP 165/72
== END 2025-01-19 14:42 | disposition home or self-care (01) | DRG 948 ==
LOC: 4 EAST ACU 06:10
PROVIDERS: ADMITTING PHYSICIAN Internal Medicine; ATTENDING PHYSICIAN Internal Medicine; CONSULT PHYSICIAN Orthopaedic Surgery Orthopaedic Surgery of the Spine; CONSULT PHYSICIAN Otolaryngology; EMERGENCY PHYSICIAN Student in an Organized Health Care Education/Training Program; FAMILY PHYSICIAN Family Medicine
DX: R60.0 Localized edema (principal); R13.10 Dysphagia, unspecified; I10 Essential (primary) hypertension; M10.9 Gout, unspecified; Z96.652 Presence of left artificial knee joint; Z96.641 Presence of right artificial hip joint; Z98.1 Arthrodesis status; R73.03 Prediabetes; M19.90 Unspecified osteoarthritis, unspecified site; E78.5 Hyperlipidemia, unspecified; Z11.52 Encounter for screening for COVID-19
CPT/HCPCS: 70490; 71046; 74230; 80048; 80053; 83735; 83880; 84100; 84484; 85025; 85027; 87502; 87811; 92526; 92610; 92611; 96374; 99285

== ENCOUNTER 2025-02-04 05:52 | Outpatient (RCR) | payer MEDICARE, SELFPAY | END 2025-02-04 23:59 | disposition home or self-care (01) | LOC: RST 05:52 | PROVIDERS: ATTENDING PHYSICIAN Family Medicine | DX: R13.13 Dysphagia, pharyngeal phase (principal); M43.22 Fusion of spine, cervical region | CPT/HCPCS: 92526; 92610 ==

== ENCOUNTER 2025-03-04 12:58 | Outpatient (RCR) | payer MEDICARE, SELFPAY | END 2025-03-04 23:59 | disposition home or self-care (01) | LOC: RST 12:58 | PROVIDERS: ATTENDING PHYSICIAN Family Medicine | DX: R13.13 Dysphagia, pharyngeal phase (principal); M43.22 Fusion of spine, cervical region | CPT/HCPCS: 92526 ==

== ENCOUNTER → 2025-03-30 09:52 | Outpatient (REF) | payer MEDICARE, SELFPAY | LOC: RST 09:52 | PROVIDERS: ATTENDING PHYSICIAN Family Medicine | DX: Z98.890 Other specified postprocedural states (principal); R13.10 Dysphagia, unspecified | CPT/HCPCS: 74230; 92611 ==